=== PATIENT | male | born 1985 | race Caucasian/White ===

== ENCOUNTER 2018-05-25 12:36 | Emergency (ER) | payer BC ==
[~2018-05-25] VITALS: Ht 177.8 cm; Wt 90.7 kg
[2018-05-25 12:42] VITALS: Ht 177.8 cm; Wt 90.7 kg
[2018-05-25 13:16] LABS: BASOPHIL % 1.2 % (0-2); PLATELET COUNT 266 x10^3mcL (130-400); RED CELL DISTRIBUTION WIDTH 12.9 % (11.5-14.5)
[2018-05-25 13:37] LABS: ALBUMIN 4.4 g/dL (3.4-5.0); ALKALINE PHOSPHATASE 96 U/L (46-116); ALT/SGPT 50 U/L (16-63); AMYLASE 52 U/L (25-115); AST/SGOT 23 U/L (15-37); BILIRUBIN TOTAL 0.4 mg/dL (0.20-1.00); CALCIUM 9.1 mg/dL (8.5-10.1); CARBON DIOXIDE 27.6 mmol/L (21-32); CHLORIDE SERUM 105 mmol/L (98-107); GFR1 > 60 mL/min; GLUCOSE SERUM 112 mg/dL (74-106); HDL CHOLESTEROL 38 mg/dL (40-60); LIPASE 111 IU/L (73-393); POTASSIUM SERUM 3.9 mmol/L (3.5-5.1); SODIUM SERUM 142 mmol/L (136-145); T4(THYROXINE) 7.3 ug/dL (4.7-13.3); TOTAL PROTEIN, SERUM 8.2 g/dL (6.4-8.2)
[2018-05-25 13:39] LABS: CHOLESTEROL 248 mg/dL (<200)
[2018-05-25 13:55] VITALS: BP 132/79
[2018-05-25 15:12] LABS: microscopic required? NO
[2018-05-25 15:29] LABS: urine erythrocyte NEGATIVE (NEGATIVE)
[2018-05-25 15:30] LABS: AMPHETAMINE QUAL UR NONE DETECTED (See below)
== END 2018-05-25 15:21 | disposition left against medical advice (07) ==
LOC: ED 12:36
PROVIDERS: Emergency Medicine
DX: F10.129 Alcohol abuse with intoxication, unspecified (principal); F17.210 Nicotine dependence, cigarettes, uncomplicated; F31.9 Bipolar disorder, unspecified; I45.2 Bifascicular block
CPT/HCPCS: 90715; 99406; G0480; J7030; Q0092